=== PATIENT | female | born 1995 | race Caucasian/White ===

== ENCOUNTER 2016-10-29 16:08 | Emergency (ER) | payer MEDICAID ==
[2016-10-29 16:47] VITALS: BP 111/69
--- NOTE | 2016-10-29 17:24 | EDM.PDOC ---
ED HPI Skin/Rash - General Chief Complaint: Skin Complaint Stated Complaint: SCABIES Time Seen by Provider: 10/29/16 17:18 Source: Reports: Patient History Limitations: Reports: No limitations - History of Present Illness INITIAL COMMENTS - FREE TEXT/NARRATIVE: History of present illness: [21-year-old female presenting with concerns of scabies. Patient indicates that they have gotten progressively worse over last several days but. The itching is worse at night, they are spreading in the pattern consistent with research she has done. And now her boyfriend who had not been with for the last few weeks has started to have the itching and rash consistent with what she is experiencing.] Review of systems: As per history of present illness and below otherwise all systems reviewed and negative. Past medical history: As per history of present illness and as reviewed below otherwise noncontributory. Surgical history: As per history of present illness and as reviewed below otherwise noncontributory. Social history: No reported history of drug or alcohol abuse. Family history: As per history of present illness and as reviewed below otherwise noncontributory. Physical exam: HEENT: Atraumatic, normocephalic, pupils reactive, negative for conjunctival pallor or scleral icterus, mucous membranes moist, throat clear, neck supple, nontender, trachea midline. Lungs: Clear to auscultation, breath sounds equal bilaterally, chest nontender. Heart: S1S2, regular, negative for clicks, rubs, or JVD. Abdomen: Soft, nondistended, nontender. Negative for masses or hepatosplenomegaly. Negative for costovertebral tenderness. Pelvis: Stable nontender. Genitourinary: Deferred. Rectal: Deferred. Extremities: Atraumatic, negative for cords or calf pain. Neurovascular unremarkable. Neuro: Awake, alert, oriented. Cranial nerves II through XII unremarkable. Cerebellum unremarkable. Motor and sensory unremarkable throughout. Exam nonfocal. Skin: Nonspecific type rash consistent with scabies presenting over hands, axilla, chest, lower abdomen and patient indicates other areas. Discussed with patient the need to treat all linens, clothing, and bedding. As well as any bed partners needing to be treated as well, for total eradication. Patient instructed on necessity to follow scrupulous hygienic practices and trying to eradicate the scabies or she would have to have repeated treatments which would be progressive in severity. Diagnostics: [] Therapeutics: [] Impression: [Scabies] Plan: Permethrin [] Definitive disposition and diagnosis as appropriate pending reevaluation and review of above. - Related Data Allergies Allergy/AdvReac Type Severity Reaction Status Date / Time olive oil Allergy Hives Verified 10/29/16 16:29 Home Meds: Ambulatory Orders Medication Instructions Recorded Confirmed Permethrin 60 gm TP ASDIRECTED #2 tube 10/29/16 Past Medical History - Past Health History Medical/Surgical History: Denies Medical/Surgical History - Infectious Disease History Infectious Disease History: Reports: Chicken pox Social & Family History - Family History Family Medical History: Noncontributory - Tobacco Use Smoking Status *Q: Never Smoker - Caffeine Use Caffeine Use: Reports: None - Recreational Drug Use Recreational Drug Use: No ED ROS GENERAL - Review of Systems Review Of Systems: See Below (See history of present illness) ED EXAM, SKIN/RASH Exam: See Below (See history of present illness) Course - Vital Signs Last Recorded V/S: Last Vital Signs Temp 36.4 C 10/29/16 16:46 Pulse 70 10/29/16 16:46 Resp 20 10/29/16 16:46 BP 111/69 10/29/16 16:46 Pulse Ox 99 10/29/16 16:46 Departure - Departure Time of Disposition: 17:22 Disposition: Home, Self-Care 01 Condition: good Clinical Impression: Scabies infestation Prescriptions: Permethrin 60 gm TP ASDIRECTED #2 tube Forms: ED Department Discharge Additional Instructions: The following information is given to patients seen in the emergency department who are being discharged to home. This information is to outline your options for follow-up care. We provide all patients seen in our emergency department with a follow-up referral. The need for follow-up, as well as the timing and circumstances, are variable depending upon the specifics of your emergency department visit. If you don't have a primary care physician on staff, we will provide you with a referral. We always advise you to contact your personal physician following an emergency department visit to inform them of the circumstance of the visit and for follow-up with them and/or the need for any referrals to a consulting specialist. The emergency department will also refer you to a specialist when appropriate. This referral assures that you have the opportunity for follow-up care with a specialist. All of these measure are taken in an effort to provide you with optimal care, which includes your follow-up. Under all circumstances we always encourage you to contact your private physician who remains a resource for coordinating your care. When calling for follow-up care, please make the office aware that this follow-up is from your recent emergency room visit. If for any reason you are refused follow-up, please contact the [facility] Emergency Department at and asked to speak to the emergency department charge nurse. Use medication as directed Clean house and limits as discussed Followup with your PCP 1-2 days Return to ED as needed as discussed
== END 2016-10-29 17:45 | disposition home or self-care (01) ==
LOC: MW.ED 16:08
DX: B86 Scabies (principal)
CPT/HCPCS: 99282

== ENCOUNTER 2018-08-05 15:34 | Emergency (ER) | payer OTHER ==
[2018-08-05 16:14] VITALS: BP 121/90
--- NOTE | 2018-08-05 17:45 | CT ---
INDICATION: Head trauma, headache TECHNIQUE: CT head without contrast. COMPARISON: April 06, 2018 FINDINGS: CSF spaces: Within normal limits for age. Brain parenchyma: The fonseca-white differentiation is normal. No sign of mass, hemorrhage, or midline shift. Skull base and calvarium: The visualized paranasal sinuses and mastoid air cells demonstrate no acute or significant findings. The visualized orbits are grossly unremarkable. No skull fractures. IMPRESSION: Unremarkable noncontrast head CT. Please note that all CT scans at this facility use dose modulation, iterative reconstruction, and/or weight-based dosing when appropriate to reduce radiation dose to as low as reasonably achievable. Dictated by Elaine Levin MD @ Aug 05 2018 5:42PM Signed by Dr. Elaine Levin @ Aug 05 2018 5:44PM
--- NOTE | 2018-08-05 18:20 | EDM.PDOC ---
ED HPI GENERAL MEDICAL PROBLEM - General Chief Complaint: Head Injury Stated Complaint: HEAD INJURY Time Seen by Provider: 08/05/18 16:11 Source of Information: Reports: Patient History Limitations: Reports: No Limitations - History of Present Illness INITIAL COMMENTS - FREE TEXT/NARRATIVE: History of present illness: []Patient was at work and walked into a lamp attached to the wall by a door and shortly after she became "loopy" her coworkers having difficulty speaking confused and not able to stay on task. She had no loss of consciousness denies any visual changes nausea, vomiting or neck pain. Review of systems: As per history of present illness and below otherwise all systems reviewed and negative. Past medical history: As per history of present illness and as reviewed below otherwise noncontributory. Surgical history: As per history of present illness and as reviewed below otherwise noncontributory. Social history: No reported history of drug or alcohol abuse. Family history: As per history of present illness and as reviewed below otherwise noncontributory. Physical exam: General: Well developed, well nourished in NAD HEENT: Atraumatic, normocephalic, pupils reactive, negative for conjunctival pallor or scleral icterus, mucous membranes moist, throat clear, neck supple, nontender, trachea midline. Lungs: Clear to auscultation, breath sounds equal bilaterally, chest nontender. Heart: S1S2, regular, negative for clicks, rubs, or JVD. Abdomen: NABS, Soft, nondistended, nontender. Negative for masses or hepatosplenomegaly. Negative for costovertebral tenderness. Pelvis: Stable nontender. Genitourinary: Deferred. Rectal: Deferred. Extremities: Atraumatic, negative for cords or calf pain. Neurovascular unremarkable. Neuro: Awake, alert, oriented. Cranial nerves II through XII unremarkable. Cerebellum unremarkable. Motor and sensory unremarkable throughout. Exam nonfocal. Skin:warm and dry Diagnostics: CT had negative Therapeutics: None ED Course: Unremarkable Impression: Blunt head trauma Prescriptions: None Plan: Follow-up with primary care. To ER if any symptoms worsen or change. Definitive disposition and diagnosis as appropriate pending reevaluation and review of above. Left Head Pain Score (Numeric/FACES): 3 - Related Data Allergies Allergy/AdvReac Type Severity Reaction Status Date / Time olive oil Allergy Hives Verified 02/08/19 16:14 Home Meds: Home Meds . 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 Neurological History: Reports: None Psychiatric History: Reports: None Endocrine/Metabolic History: Reports: None Hematologic History: Reports: None Dermatologic History: Reports: None - Infectious Disease History Infectious Disease History: Reports: Chicken Pox - Past Surgical History HEENT Surgical History: Reports: Oral Surgery Other Musculoskeletal Surgeries/Procedures:: pelvic fracture Social & Family History - Family History Family Medical History: Noncontributory - Tobacco Use Smoking Status *Q: Never Smoker - Caffeine Use Caffeine Use: Reports: None - Recreational Drug Use Recreational Drug Use: No ED ROS GENERAL - Review of Systems Review Of Systems: ROS reveals no pertinent complaints other than HPI. ED EXAM, HEAD INJURY - Physical Exam Exam: See Below (See history of present illness) Course - Vital Signs Last Recorded V/S: Last Vital Signs Temp Pulse 70 08/05/18 16:12 Resp 18 08/05/18 16:12 BP 121/90 08/05/18 16:12 Pulse Ox 100 08/05/18 16:12 Departure - Departure Time of Disposition: 18:19 Disposition: Home, Self-Care 01 Condition: Good Clinical Impression: Blunt head trauma Qualifiers: Encounter type: initial encounter Qualified Code(s): S09.8XXA - Other specified injuries of head, initial encounter - Discharge Information *PRESCRIPTION DRUG MONITORING PROGRAM REVIEWED*: No *COPY OF PRESCRIPTION DRUG MONITORING REPORT IN PATIENT JAVIER: No Referrals: PCP,Unknown [Primary Care Provider] - Additional Instructions: The following information is given to patients seen in the emergency department who are being discharged to home. This information is to outline your options for follow-up care. We provide all patients seen in our emergency department with a follow-up referral. The need for follow-up, as well as the timing and circumstances, are variable depending upon the specifics of your emergency department visit. If you don't have a primary care physician on staff, we will provide you with a referral. We always advise you to contact your personal physician following an emergency department visit to inform them of the circumstance of the visit and for follow-up with them and/or the need for any referrals to a consulting specialist. The emergency department will also refer you to a specialist when appropriate. This referral assures that you have the opportunity for follow-up care with a specialist. All of these measure are taken in an effort to provide you with optimal care, which includes your follow-up. Under all circumstances we always encourage you to contact your private physician who remains a resource for coordinating your care. When calling for follow-up care, please make the office aware that this follow-up is from your recent emergency room visit. If for any reason you are refused follow-up, please contact the [facility] Emergency Department at and asked to speak to the emergency department charge nurse. [facility] Primary [facility] [address] [place] [id number]
== END 2018-08-05 18:38 | disposition home or self-care (01) ==
LOC: MW.ED 15:34
DX: S09.8XXA Other specified injuries of head, initial encounter (principal); Z91.09 Other allergy status, other than to drugs and biological substances; Y99.0 Civilian activity done for income or pay; W22.8XXA Striking against or struck by other objects, initial encounter
CPT/HCPCS: 70450; 70450-26; 99283; 99283-25

== ENCOUNTER 2018-08-09 18:07 | Emergency (ER) | payer OTHER ==
--- NOTE | 2018-08-09 18:34 | EDM.PDOC ---
ED HPI GENERAL MEDICAL PROBLEM - General Chief Complaint: Medication Administration Stated Complaint: MEDICATION REFILL Time Seen by Provider: 08/09/18 18:09 Source of Information: Reports: Patient History Limitations: Reports: No Limitations - History of Present Illness INITIAL COMMENTS - FREE TEXT/NARRATIVE: History of present illness: []Patient is on antidepressants and is requesting a refill of her meds. She moved to [place] 2 months ago and has not sought out a primary care to continue her regular meds. He is not suicidal homicidal but states she does not want to get to the point. She still has meds but will be running out soon. Review of systems: As per history of present illness and below otherwise all systems reviewed and negative. Past medical history: As per history of present illness and as reviewed below otherwise noncontributory. Surgical history: As per history of present illness and as reviewed below otherwise noncontributory. Social history: No reported history of drug or alcohol abuse. Family history: As per history of present illness and as reviewed below otherwise noncontributory. Physical exam: General: Well developed, well nourished in NAD HEENT: Atraumatic, normocephalic, pupils reactive, negative for conjunctival pallor or scleral icterus, mucous membranes moist, throat clear, neck supple, nontender, trachea midline. Lungs: Clear to auscultation, breath sounds equal bilaterally, chest nontender. Heart: S1S2, regular, negative for clicks, rubs, or JVD. Abdomen: NABS, Soft, nondistended, nontender. Negative for masses or hepatosplenomegaly. Negative for costovertebral tenderness. Pelvis: Stable nontender. Genitourinary: Deferred. Rectal: Deferred. Extremities: Atraumatic, negative for cords or calf pain. Neurovascular unremarkable. Neuro: Awake, alert, oriented. Cranial nerves II through XII unremarkable. Cerebellum unremarkable. Motor and sensory unremarkable throughout. Exam nonfocal. Skin:warm and dry Diagnostics: None Therapeutics: None ED Course: Unremarkable Impression: Medical screening exam Prescriptions: None Plan: Follow-up with primary care Definitive disposition and diagnosis as appropriate pending reevaluation and review of above. 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 Neurological History: Reports: None Psychiatric History: Reports: None Endocrine/Metabolic History: Reports: None Hematologic History: Reports: None Dermatologic History: Reports: None - Infectious Disease History Infectious Disease History: Reports: Chicken Pox - Past Surgical History HEENT Surgical History: Reports: Oral Surgery Other Musculoskeletal Surgeries/Procedures:: pelvic fracture Social & Family History - Family History Family Medical History: Noncontributory - Caffeine Use Caffeine Use: Reports: None ED ROS GENERAL - Review of Systems Review Of Systems: ROS reveals no pertinent complaints other than HPI. ED EXAM, GENERAL - Physical Exam Exam: See Below (History of present illness) Departure - Departure Time of Disposition: 18:33 Disposition: Home, Self-Care 01 Condition: Good Clinical Impression: Encounter for medical screening examination - Discharge Information *PRESCRIPTION DRUG MONITORING PROGRAM REVIEWED*: No *COPY OF PRESCRIPTION DRUG MONITORING REPORT IN PATIENT JAVIER: No Referrals: PCP,None [Primary Care Provider] - Additional Instructions: The following information is given to patients seen in the emergency department who are being discharged to home. This information is to outline your options for follow-up care. We provide all patients seen in our emergency department with a follow-up referral. The need for follow-up, as well as the timing and circumstances, are variable depending upon the specifics of your emergency department visit. If you don't have a primary care physician on staff, we will provide you with a referral. We always advise you to contact your personal physician following an emergency department visit to inform them of the circumstance of the visit and for follow-up with them and/or the need for any referrals to a consulting specialist. The emergency department will also refer you to a specialist when appropriate. This referral assures that you have the opportunity for follow-up care with a specialist. All of these measure are taken in an effort to provide you with optimal care, which includes your follow-up. Under all circumstances we always encourage you to contact your private physician who remains a resource for coordinating your care. When calling for follow-up care, please make the office aware that this follow-up is from your recent emergency room visit. If for any reason you are refused follow-up, please contact the [facility] Emergency Department at and asked to speak to the emergency department charge nurse. Follow-up with primary care [facility] [place] [phone]
[2018-08-09 18:47] VITALS: BP 115/74
== END 2018-08-09 18:51 | disposition home or self-care (01) ==
LOC: MW.ED 18:07
DX: Z76.0 Encounter for issue of repeat prescription (principal)
CPT/HCPCS: 99281

== ENCOUNTER 2018-08-11 15:25 | Emergency (ER) | payer SELFPAY ==
--- NOTE | 2018-08-11 15:39 | EDM.PDOC ---
ED HPI GENERAL MEDICAL PROBLEM - General Chief Complaint: Abdominal Pain Stated Complaint: BACK AND STOMACH PAIN Time Seen by Provider: 08/11/18 15:37 Source of Information: Reports: Patient History Limitations: Reports: No Limitations - History of Present Illness INITIAL COMMENTS - FREE TEXT/NARRATIVE: HISTORY AND PHYSICAL: History of present illness: Patient is a 23-year-old female who presents to the emergency room with complaints of right flank pain that radiates into the low abdomen. She states the symptoms have been ongoing for the past week but more so over the past 2 days. She was seen at [facility] for STD testing (due to the low abdominal pain and vaginal discharge), she was told all of her results were normal. Today's concern is more of the back and low abdominal pain. She denies any fever, chills, chest pain, shortness of breath or cough. Does have mild nausea without vomiting. Does report mild dysuria and few loose stools. She has been eating and drinking appropriately. States she does drink alcohol, but not in excess. Last menstrual period was 07/20/18. Review of systems: As per history of present illness and below otherwise all systems reviewed and negative. Past medical history: As per history of present illness and as reviewed below otherwise noncontributory. Surgical history: As per history of present illness and as reviewed below otherwise noncontributory. Social history: See social history for further information Family history: As per history of present illness and as reviewed below otherwise noncontributory. Physical exam: General: Well-developed and well-nourished 23-year-old female. Alert and oriented. Nontoxic appearing and in no acute distress. HEENT: Atraumatic, normocephalic, pupils equal and reactive bilaterally, negative for conjunctival pallor or scleral icterus, mucous membranes moist, TMs normal bilaterally, throat clear, neck supple, nontender, trachea midline. No drooling or trismus noted. No meningeal signs. No hot potato voice noted. Lungs: Clear to auscultation, breath sounds equal bilaterally, chest nontender. Heart: S1S2, regular rate and rhythm without overt murmur Abdomen: Soft, nondistended, mild epigastric abdominal pain. No rebound tenderness. Negative for masses or hepatosplenomegaly. Negative for costovertebral tenderness. Pelvis: Stable nontender. Genitourinary: Deferred. Rectal: Deferred. Skin: Intact, warm, dry. No lesions or rashes noted. Extremities: Atraumatic, negative for cords or calf pain. Neurovascular unremarkable. Neuro: Awake, alert, oriented. Cranial nerves II through XII unremarkable. Cerebellum unremarkable. Motor and sensory unremarkable throughout. Exam nonfocal. Notes: CBC and CMP urine are unremarkable. CT of the abdomen shows inflammatory fat stranding at the pancreatic head and second portion of the duodenum with trace free fluid in the right retroperitoneum this is suggestive of pancreatitis please correlate with the lipase. I will add this on to her lab work. Lipase is elevated. Another differential diagnosis that was suggested is peptic ulcer disease, H. pylori was added and she is positive. CT also shows fatty infiltration of the liver. Currently our facility is at maximum capacity and we are on diversion. Dr. Vincent was consulted on this case, she agrees that the patient would either need to be admitted or transferred. I did offer to transfer patient for further care and management, patient declines. We discussed doing IV fluids while here and re-evaluating after hydration. Patient is nontoxic appearing. She had previous nausea, but no active vomiting. Currently denies nausea. Abdominal pain is a 1/10. She has no elevated white count. Vital signs stable, afebrile. Patient was re-offered transfer, but does not want to be admitted or transferred. She is agreeable to returning tomorrow morning for reevaluation. Dr. Paulino was informed of this as she will be on between 7am and 4 PM and will reevaluate this patient as needed. Patient aware of possible risks. Discharged to home with script and education. Denies further questions or concerns at this time. Diagnostics: CBC, CMP, UA, urine , Lipase, HPylori Therapeutics: IV fluids, Morphine, Zofran, norco Omeprozole, Clarithromycin, amoxicillin PO Prescription: Omeprozole, Clarithromycin, amoxicillin Impression: H. Pylori Infection Pancreatitis Plan: 1. Please come back to the ER tomorrow for re-evaluation between 7am - 4pm. 2. Take the antibiotics as directed. [place] diet and advance as tolerated. Please increase your oral fluids. 3. Follow up with the general surgeon, Dr Vincent (or provider or your choosing) in the next 1-2 days. Return to the ED as needed as discussed. Definitive disposition and diagnosis as appropriate pending reevaluation and review of above. 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 Neurological History: Reports: None Psychiatric History: Reports: None Endocrine/Metabolic History: Reports: None Hematologic History: Reports: None Dermatologic History: Reports: None - Infectious Disease History Infectious Disease History: Reports: Chicken Pox - Past Surgical History HEENT Surgical History: Reports: Oral Surgery Other Musculoskeletal Surgeries/Procedures:: pelvic fracture Social & Family History - Family History Family Medical History: Noncontributory - Caffeine Use Caffeine Use: Reports: None ED ROS GENERAL - Review of Systems Review Of Systems: ROS reveals no pertinent complaints other than HPI. ED EXAM, GI/ABD - Physical Exam Exam: See Below (See dictation) Course - Vital Signs Last Recorded V/S: Last Vital Signs Temp 96.8 F 08/11/18 15:38 Pulse 88 08/11/18 15:38 Resp 16 08/11/18 15:38 BP 129/94 H 08/11/18 15:38 Pulse Ox 99 08/11/18 15:38 - Orders/Labs/Meds Orders: Active Orders 24 hr Category Date Time Status Sodium Chloride 0.9% [Normal Saline] 1,000 ml Med 08/11/18 21:05 Ordered IV STAT Labs: Laboratory Tests 08/11/18 08/11/18 08/11/18 Range/Units 16:00 16:00 16:00 WBC 7.38 (4.0-11.0) K/uL RBC 3.97 L (4.30-5.90) M/uL Hgb 13.2 (12.0-16.0) g/dL Hct 37.9 (36.0-46.0) % MCV 95.5 (80.0-98.0) fL MCH 33.2 H (27.0-32.0) pg MCHC 34.8 (31.0-37.0) g/dL RDW Std Deviation 44.2 (28.0-62.0) fl RDW Coeff of Bear 13 (11.0-15.0) % Plt Count 219 (150-400) K/uL MPV 10.00 (7.40-12.00) fL Neut % (Auto) 78.9 (48.0-80.0) % Lymph % (Auto) 12.9 L (16.0-40.0) % [place] % (Auto) 7.6 (0.0-15.0) % Eos % (Auto) 0.5 (0.0-7.0) % Baso % (Auto) 0.1 (0.0-1.5) % Neut # (Auto) 5.8 H (1.4-5.7) K/uL Lymph # (Auto) 1.0 (0.6-2.4) K/uL [place] # (Auto) 0.6 (0.0-0.8) K/uL Eos # (Auto) 0.0 (0.0-0.7) K/uL Baso # (Auto) 0.0 (0.0-0.1) K/uL Nucleated RBC % 0.0 /100WBC Nucleated RBCs # 0 K/uL Sodium 137 (136-145) mmol/L Potassium 3.6 (3.5-5.1) mmol/L Chloride 103 (98-107) mmol/L Carbon Dioxide 25.5 (21.0-32.0) mmol/L BUN 8 (7.0-18.0) mg/dL Creatinine 0.8 (0.6-1.0) mg/dL Est Cr Clr Drug Dosing 110.33 mL/min Estimated GFR (MDRD) > 60.0 ml/min Glucose 142 H (74-106) mg/dL Calcium 9.6 (8.5-10.1) mg/dL Total Bilirubin 0.6 (0.2-1.0) mg/dL AST 48 H (15-37) IU/L ALT 43 (14-63) IU/L Alkaline Phosphatase 74 (46-116) U/L Total Protein 7.1 (6.4-8.2) g/dL Albumin 3.9 (3.4-5.0) g/dL Globulin 3.2 (2.6-4.0) g/dL Albumin/Globulin Ratio 1.2 (0.9-1.6) Lipase 897 H (73-393) U/L Urine Color Urine Appearance Urine pH (5.0-8.0) Ur Specific [place] (1.001-1.035) Urine Protein (NEGATIVE) mg/dL Urine Glucose (UA) (NEGATIVE) mg/dL Urine Ketones (NEGATIVE) mg/dL Urine Occult Blood (NEGATIVE) Urine Nitrite (NEGATIVE) Urine Bilirubin (NEGATIVE) Urine Urobilinogen (<2.0) EU/dL Ur Leukocyte Esterase (NEGATIVE) Urine HCG, Qual (NEGATIVE) H. pylori IgG Antibody (NEG) 08/11/18 08/11/18 08/11/18 Range/Units 16:00 16:20 16:20 WBC (4.0-11.0) K/uL RBC (4.30-5.90) M/uL Hgb (12.0-16.0) g/dL Hct (36.0-46.0) % MCV (80.0-98.0) fL MCH (27.0-32.0) pg MCHC (31.0-37.0) g/dL RDW Std Deviation (28.0-62.0) fl RDW Coeff of Bear (11.0-15.0) % Plt Count (150-400) K/uL MPV (7.40-12.00) fL Neut % (Auto) (48.0-80.0) % Lymph % (Auto) (16.0-40.0) % [place] % (Auto) (0.0-15.0) % Eos % (Auto) (0.0-7.0) % Baso % (Auto) (0.0-1.5) % Neut # (Auto) (1.4-5.7) K/uL Lymph # (Auto) (0.6-2.4) K/uL [place] # (Auto) (0.0-0.8) K/uL Eos # (Auto) (0.0-0.7) K/uL Baso # (Auto) (0.0-0.1) K/uL Nucleated RBC % /100WBC Nucleated RBCs # K/uL Sodium (136-145) mmol/L Potassium (3.5-5.1) mmol/L Chloride (98-107) mmol/L Carbon Dioxide (21.0-32.0) mmol/L BUN (7.0-18.0) mg/dL Creatinine (0.6-1.0) mg/dL Est Cr Clr Drug Dosing mL/min Estimated GFR (MDRD) ml/min Glucose (74-106) mg/dL Calcium (8.5-10.1) mg/dL Total Bilirubin (0.2-1.0) mg/dL AST (15-37) IU/L ALT (14-63) IU/L Alkaline Phosphatase (46-116) U/L Total Protein (6.4-8.2) g/dL Albumin (3.4-5.0) g/dL Globulin (2.6-4.0) g/dL Albumin/Globulin Ratio (0.9-1.6) Lipase (73-393) U/L Urine Color YELLOW Urine Appearance SLT CLOUDY Urine pH 7.0 (5.0-8.0) Ur Specific [place] 1.020 (1.001-1.035) Urine Protein NEGATIVE (NEGATIVE) mg/dL Urine Glucose (UA) NEGATIVE (NEGATIVE) mg/dL Urine Ketones TRACE H (NEGATIVE) mg/dL Urine Occult Blood NEGATIVE (NEGATIVE) Urine Nitrite NEGATIVE (NEGATIVE) Urine Bilirubin NEGATIVE (NEGATIVE) Urine Urobilinogen 1.0 (<2.0) EU/dL Ur Leukocyte Esterase NEGATIVE (NEGATIVE) Urine HCG, Qual NEGATIVE (NEGATIVE) H. pylori IgG Antibody POSITIVE H (NEG) Meds: Medications Discontinued Medications Generic Name Dose Route Start Last Admin Trade Name Freq PRN Reason Stop Dose Admin Amoxicillin 1,000 mg 08/11/18 20:48 Amoxil PO 08/11/18 20:49 ONETIME ONE Clarithromycin 500 mg 08/11/18 20:48 Biaxin PO 08/11/18 20:49 NOW STA Al Hydroxide/Mg Hydroxide 15 0 ml 08/11/18 18:43 08/11/18 19:06 ml/ Lidocaine HCl 5 ml PO 08/11/18 18:44 1 each ONETIME ONE Administration Sodium Chloride 1,000 mls @ 999 mls/hr 08/11/18 19:16 08/11/18 20:10 Normal Saline IV 08/11/18 20:16 999 mls/hr STAT ONE Administration Morphine Sulfate 2 mg 08/11/18 19:16 08/11/18 20:14 Morphine IVPUSH 08/11/18 19:17 2 mg ONETIME ONE Administration Omeprazole 20 mg 08/11/18 20:48 Omeprazole PO 08/11/18 20:49 ONETIME ONE Ondansetron HCl 4 mg 08/11/18 19:16 08/11/18 20:11 Zofran IVPUSH 08/11/18 19:17 4 mg ONETIME ONE Administration Departure - Departure Time of Disposition: 21:11 Disposition: Home, Self-Care 01 Clinical Impression: Helicobacter pylori (H. pylori) infection Pancreatitis Qualifiers: Chronicity: acute Pancreatitis type: unspecified pancreatitis type Acute pancreatitis complication: no infection or necrosis Qualified Code(s): K85.90 - Acute pancreatitis without necrosis or infection, unspecified - Discharge Information Instructions: Acute Pancreatitis, [id number], Helicobacter Pylori Infection Referrals: PCP,None [Primary Care Provider] - Forms: ED Department Discharge Additional Instructions: The following information is given to patients seen in the emergency department who are being discharged to home. This information is to outline your options for follow-up care. We provide all patients seen in our emergency department with a follow-up referral. The need for follow-up, as well as the timing and circumstances, are variable depending upon the specifics of your emergency department visit. If you don't have a primary care physician on staff, we will provide you with a referral. We always advise you to contact your personal physician following an emergency department visit to inform them of the circumstance of the visit and for follow-up with them and/or the need for any referrals to a consulting specialist. The emergency department will also refer you to a specialist when appropriate. This referral assures that you have the opportunity for follow-up care with a specialist. All of these measure are taken in an effort to provide you with optimal care, which includes your follow-up. Under all circumstances we always encourage you to contact your private physician who remains a resource for coordinating your care. When calling for follow-up care, please make the office aware that this follow-up is from your recent emergency room visit. If for any reason you are refused follow-up, please contact the Emergency Department at and asked to speak to the emergency department charge nurse. Primary Care [address] [place] [address] [facility] [address] [place] [id number] Specialty Care - General Surgery Professional Building [address] [facility], [address] [place] [address] 1. Please come back to the ER tomorrow for re-evaluation between 7am - 4pm. Need to be re-evaluated and labs redrawn. 2. Take the antibiotics as directed. [place] diet and advance as tolerated. Please increase your oral fluids. 3. Follow up with the general surgeon, Dr Vincent (or provider of your choosing) in the next 1-2 days. Return to the ED as needed as discussed. - My Orders Last 24 Hours: My Active Orders 08/11/18 21:05 Sodium Chloride 0.9% [Normal Saline] 1,000 ml IV STAT - Assessment/Plan Last 24 Hours: My Active Orders 08/11/18 21:05 Sodium Chloride 0.9% [Normal Saline] 1,000 ml IV STAT
[2018-08-11 16:32] LABS: CHLORIDE,CL 103 mmol/L (98-107); SODIUM,NA 137 mmol/L (136-145)
--- NOTE | 2018-08-11 18:34 | CT ---
INDICATION: Right flank and lower back pain. TECHNIQUE: CT abdomen and pelvis without contrast. COMPARISON: Abdomen and pelvis CT 04/06/2018 FINDINGS: Lower chest: Unremarkable. Liver: Diffusely decreased density of the liver with additional focal fat adjacent to the portal vein. Gallbladder and bile ducts: No stones or inflammation. No biliary dilatation. Pancreas: There is fat stranding in the region of the pancreatic head and into the pancreatic groove surrounding the 2nd portion of the duodenum. Trace free fluid extends in the right retroperitoneum towards the right pericolic gutter. Spleen: Normal in size. No masses. Adrenal glands: Normal in size. No nodules. Kidneys: Normal in size. No masses, stones, or hydronephrosis. GI tract: The stomach is unremarkable. Inflammatory fat stranding surrounding the 2nd portion of the duodenum as described above. Remainder of the small bowel is decompressed. Terminal ileum and appendix unremarkable. Vasculature: Unremarkable. Lymph nodes: No lymphadenopathy. Abdominal wall/Omentum/Peritoneum: Unremarkable. No sign of mass or infiltration. No free air or significant free fluid. Pelvis: Unremarkable. No pelvic masses. Bones: Unremarkable for age. IMPRESSION: 1. Inflammatory fat stranding at the level of the pancreatic head and 2nd portion of the duodenum with trace free fluid in the right retroperitoneum. Appearance is suggestive of pancreatitis, correlation with lipase is suggested. Differential diagnosis would include a duodenal primary process such as an enteritis or peptic ulcer disease. 2. Fatty infiltration of the liver. Please note that all CT scans at this facility use dose modulation, iterative reconstruction, and/or weight-based dosing when appropriate to reduce radiation dose to as low as reasonably achievable. Dictated by Semaj Araujo MD @ Aug 11 2018 6:25PM Signed by Dr. Semaj Araujo @ Aug 11 2018 6:32PM
[2018-08-11] MEDS ORDERED: Alum Hydrox/Mag Hydrox/Simeth 15 ML, Lidocaine 2% 5 ML PO ONE ×2 (18:43)
[2018-08-11] MEDS ORDERED: Sodium Chloride 0.9% 1,000 ML IV ONE ×2 (19:16→21:05)
[2018-08-11] MEDS ORDERED: Ondansetron 4 MG/2 ML SDV IVPUSH ONE (19:16)
[2018-08-11] MEDS ORDERED: Morphine 2 MG/ML Syringe IVPUSH ONE (19:16)
[2018-08-11] MEDS ORDERED: Omeprazole 20 MG Cap.CR PO ONE (20:48)
[2018-08-11] MEDS ORDERED: Amoxicillin 500 MG Cap PO ONE (20:48)
[2018-08-11] MEDS ORDERED: Acetaminophen/HYDROcodone 325-5 MG Tab PO ONE (21:13)
[2018-08-11 22:09] VITALS: BP 112/77
== END 2018-08-11 22:12 | disposition home or self-care (01) ==
LOC: MW.ED 15:25
DX: K85.90 Acute pancreatitis without necrosis or infection, unspecified (principal); B96.81 Helicobacter pylori [H. pylori] as the cause of diseases classified elsewhere; Z79.899 Other long term (current) drug therapy
CPT/HCPCS: 36415; 74176; 80053; 81003; 81025; 83690; 85025; 86677; 96361; 96374; 96375; 99284; A9270; J2270; J2405; J7040

== ENCOUNTER 2018-08-12 07:33 | Emergency (ER) | payer SELFPAY ==
[2018-08-12] MEDS ORDERED: Sodium Chloride 0.9% 2.5 ML Syringe FLUSH PRN (07:40)
[2018-08-12] MEDS ORDERED: Sodium Chloride 0.9% 1,000 ML IV ONE ×2 (07:40→09:01)
[2018-08-12] MEDS ORDERED: Sodium Chloride 0.9% 10 ML Syringe FLUSH PRN (07:40)
--- NOTE | 2018-08-12 07:53 | EDM.PDOC ---
ED HPI GENERAL MEDICAL PROBLEM - General Chief Complaint: General Stated Complaint: ABDOMINAL PAIN Time Seen by Provider: 08/12/18 07:40 Source of Information: Reports: Patient History Limitations: Reports: No Limitations - History of Present Illness INITIAL COMMENTS - FREE TEXT/NARRATIVE: History of present illness: []Patient has been seen frequently in this ED for various reasons last night was here with diagnosis of pancreatitis. Patient was given the option for transfer due to lack of bed availability here but she chose to go home. Yesterday the case was discussed with general surgeon collection card clerk who was unable to see this patient in her office today due to a full schedule so patient was requested to return to the ED for a repeat labs and exam today. Review of systems: As per history of present illness and below otherwise all systems reviewed and negative. Past medical history: As per history of present illness and as reviewed below otherwise noncontributory. Surgical history: As per history of present illness and as reviewed below otherwise noncontributory. Social history: No reported history of drug or alcohol abuse. Family history: As per history of present illness and as reviewed below otherwise noncontributory. Physical exam: General: Well developed, well nourished in NAD HEENT: Atraumatic, normocephalic, pupils reactive, negative for conjunctival pallor or scleral icterus, mucous membranes moist, throat clear, neck supple, nontender, trachea midline. Lungs: Clear to auscultation, breath sounds equal bilaterally, chest nontender. Heart: S1S2, regular, negative for clicks, rubs, or JVD. Abdomen: NABS, Soft, nondistended, nontender. Negative for masses or hepatosplenomegaly. Negative for costovertebral tenderness. Pelvis: Stable nontender. Genitourinary: Deferred. Rectal: Deferred. Extremities: Atraumatic, negative for cords or calf pain. Neurovascular unremarkable. Neuro: Awake, alert, oriented. Cranial nerves II through XII unremarkable. Cerebellum unremarkable. Motor and sensory unremarkable throughout. Exam nonfocal. Skin:warm and dry Diagnostics: CBC, chemistry, lipase all improved from yesterday Therapeutics: Potassium slightly low given 40 by mouth of potassium, she was hydrated with 2 L of normal saline and given Zofran ED Course: Unremarkable Impression: Pancreatitis Prescriptions: Zofran Plan: Follow up with general surgery. Take meds as directed, follow up with your primary care physician, return to ER if symptoms worsen or change. Definitive disposition and diagnosis as appropriate pending reevaluation and review of above. Back Pain Score (Numeric/FACES): 10 - Related Data Allergies Allergy/AdvReac Type Severity Reaction Status Date / Time olive oil Allergy Hives Verified 08/12/18 07:53 Home Meds: Home Meds Gabapentin [Neurontin] 100 mg PO TID 08/09/18 [History] Mirtazapine 15 mg PO ONETIME 08/09/18 [History] Ondansetron HCl [Zofran] 4 mg PO Q4HR #12 tablet 08/12/18 [Rx] Past Medical History - Past Health History Medical/Surgical History: Denies Medical/Surgical History HEENT History: Reports: None Cardiovascular History: Reports: None Respiratory History: Reports: None Gastrointestinal History: Reports: None Genitourinary History: Reports: None 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 Neurological History: Reports: None Psychiatric History: Reports: None Endocrine/Metabolic History: Reports: None Hematologic History: Reports: None Dermatologic History: Reports: None - Infectious Disease History Infectious Disease History: Reports: Chicken Pox - Past Surgical History HEENT Surgical History: Reports: Oral Surgery Other Musculoskeletal Surgeries/Procedures:: pelvic fracture Social & Family History - Family History Family Medical History: Noncontributory - Caffeine Use Caffeine Use: Reports: None ED ROS GENERAL - Review of Systems Review Of Systems: ROS reveals no pertinent complaints other than HPI. ED EXAM, GENERAL - Physical Exam Exam: See Below (See history of present illness) Course - Vital Signs Last Recorded V/S: Last Vital Signs Temp 98.6 F 08/12/18 07:53 Pulse 87 08/12/18 07:53 Resp 15 08/12/18 07:53 BP 118/90 08/12/18 07:53 Pulse Ox 98 08/12/18 07:53 - Orders/Labs/Meds Orders: Active Orders 24 hr Category Date Time Status Sodium Chloride 0.9% [Normal Saline] 1,000 ml Med 08/12/18 09:01 Active IV .Bolus Sodium Chloride 0.9% [Saline Flush] Med 08/12/18 07:40 Active 10 ml FLUSH ASDIRECTED PRN Sodium Chloride 0.9% [Saline Flush] Med 08/12/18 07:40 Active 2.5 ml FLUSH ASDIRECTED PRN Saline Lock Insert [OM.PC] Stat Oth 08/12/18 07:40 Ordered Medication Orders Sodium Chloride (Normal Saline) 1,000 mls @ 999 mls/hr IV .Bolus ONE Stop: 08/12/18 10:01 Last Admin: 08/12/18 09:07 Dose: 999 mls/hr Sodium Chloride (Saline Flush) 10 ml FLUSH ASDIRECTED PRN PRN Reason: Keep Vein Open Last Admin: 08/12/18 08:08 Dose: 10 ml Sodium Chloride (Saline Flush) 2.5 ml FLUSH ASDIRECTED PRN PRN Reason: Keep Vein Open Last Admin: 08/12/18 08:08 Dose: 2.5 ml Labs: Laboratory Tests 08/12/18 08/12/18 Range/Units 08:05 08:05 WBC 6.12 (4.0-11.0) K/uL RBC 3.85 L (4.30-5.90) M/uL Hgb 12.7 (12.0-16.0) g/dL Hct 37.1 (36.0-46.0) % MCV 96.4 (80.0-98.0) fL MCH 33.0 H (27.0-32.0) pg MCHC 34.2 (31.0-37.0) g/dL RDW Std Deviation 44.4 (28.0-62.0) fl RDW Coeff of Bear 13 (11.0-15.0) % Plt Count 190 (150-400) K/uL MPV 9.80 (7.40-12.00) fL Neut % (Auto) 64.8 (48.0-80.0) % Lymph % (Auto) 24.7 (16.0-40.0) % [place] % (Auto) 8.8 (0.0-15.0) % Eos % (Auto) 1.5 (0.0-7.0) % Baso % (Auto) 0.2 (0.0-1.5) % Neut # (Auto) 4.0 (1.4-5.7) K/uL Lymph # (Auto) 1.5 (0.6-2.4) K/uL [place] # (Auto) 0.5 (0.0-0.8) K/uL Eos # (Auto) 0.1 (0.0-0.7) K/uL Baso # (Auto) 0.0 (0.0-0.1) K/uL Nucleated RBC % 0.0 /100WBC Nucleated RBCs # 0 K/uL Sodium 137 (136-145) mmol/L Potassium 3.1 L (3.5-5.1) mmol/L Chloride 103 (98-107) mmol/L Carbon Dioxide 25.4 (21.0-32.0) mmol/L BUN 7 (7.0-18.0) mg/dL Creatinine 0.8 (0.6-1.0) mg/dL Est Cr Clr Drug Dosing 110.33 mL/min Estimated GFR (MDRD) > 60.0 ml/min Glucose 95 (74-106) mg/dL Calcium 8.7 (8.5-10.1) mg/dL Total Bilirubin 0.8 (0.2-1.0) mg/dL AST 33 (15-37) IU/L ALT 45 (14-63) IU/L Alkaline Phosphatase 73 (46-116) U/L Total Protein 6.6 (6.4-8.2) g/dL Albumin 3.5 (3.4-5.0) g/dL Globulin 3.1 (2.6-4.0) g/dL Albumin/Globulin Ratio 1.1 (0.9-1.6) Lipase 473 H (73-393) U/L Meds: Medications Generic Name Dose Route Start Last Admin Trade Name Freq PRN Reason Stop Dose Admin Sodium Chloride 1,000 mls @ 999 mls/hr 08/12/18 09:01 08/12/18 09:07 Normal Saline IV 08/12/18 10:01 999 mls/hr .Bolus ONE Administration Sodium Chloride 10 ml 08/12/18 07:40 08/12/18 08:08 Saline Flush FLUSH 10 ml ASDIRECTED PRN Administration Keep Vein Open Sodium Chloride 2.5 ml 08/12/18 07:40 08/12/18 08:08 Saline Flush FLUSH 2.5 ml ASDIRECTED PRN Administration Keep Vein Open Discontinued Medications Generic Name Dose Route Start Last Admin Trade Name Freq PRN Reason Stop Dose Admin Sodium Chloride 1,000 mls @ 999 mls/hr 08/12/18 07:40 08/12/18 08:08 Normal Saline IV 08/12/18 08:40 999 mls/hr .Bolus ONE Administration Ondansetron HCl 4 mg 08/12/18 09:00 08/12/18 09:07 Zofran IVPUSH 08/12/18 09:01 4 mg ONETIME ONE Administration Potassium Chloride 40 meq 08/12/18 09:00 08/12/18 09:07 Klor-Con M20 PO 08/12/18 09:01 40 meq ONETIME ONE Administration Departure - Departure Time of Disposition: 09:56 Disposition: Home, Self-Care 01 Condition: Good Clinical Impression: Pancreatitis Qualifiers: Chronicity: acute Pancreatitis type: unspecified pancreatitis type Acute pancreatitis complication: no infection or necrosis Qualified Code(s): K85.90 - Acute pancreatitis without necrosis or infection, unspecified - Discharge Information *PRESCRIPTION DRUG MONITORING PROGRAM REVIEWED*: No *COPY OF PRESCRIPTION DRUG MONITORING REPORT IN PATIENT AJVIER: No Prescriptions: Ondansetron HCl [Zofran] 4 mg PO Q4HR #12 tablet Referrals: PCP,Unknown [Primary Care Provider] - Forms: ED Department Discharge Additional Instructions: The following information is given to patients seen in the emergency department who are being discharged to home. This information is to outline your options for follow-up care. We provide all patients seen in our emergency department with a follow-up referral. The need for follow-up, as well as the timing and circumstances, are variable depending upon the specifics of your emergency department visit. If you don't have a primary care physician on staff, we will provide you with a referral. We always advise you to contact your personal physician following an emergency department visit to inform them of the circumstance of the visit and for follow-up with them and/or the need for any referrals to a consulting specialist. The emergency department will also refer you to a specialist when appropriate. This referral assures that you have the opportunity for follow-up care with a specialist. All of these measure are taken in an effort to provide you with optimal care, which includes your follow-up. Under all circumstances we always encourage you to contact your private physician who remains a resource for coordinating your care. When calling for follow-up care, please make the office aware that this follow-up is from your recent emergency room visit. If for any reason you are refused follow-up, please contact the [facility] Emergency Department at and asked to speak to the emergency department charge nurse. Take meds as directed, follow up with your primary care physician, return to ER if symptoms worsen or change. [facility] Specialty Care - General Surgery Professional Building [address] [place] [address], [address] [place] [address] - My Orders Last 24 Hours: My Active Orders 08/12/18 07:40 Sodium Chloride 0.9% [Saline Flush] 10 ml FLUSH ASDIRECTED PRN Sodium Chloride 0.9% [Saline Flush] 2.5 ml FLUSH ASDIRECTED PRN Saline Lock Insert [OM.PC] Stat 08/12/18 09:01 Sodium Chloride 0.9% [Normal Saline] 1,000 ml IV .Bolus - Assessment/Plan Last 24 Hours: My Active Orders 08/12/18 07:40 Sodium Chloride 0.9% [Saline Flush] 10 ml FLUSH ASDIRECTED PRN Sodium Chloride 0.9% [Saline Flush] 2.5 ml FLUSH ASDIRECTED PRN Saline Lock Insert [OM.PC] Stat 08/12/18 09:01 Sodium Chloride 0.9% [Normal Saline] 1,000 ml IV .Bolus
[2018-08-12 08:41] LABS: CHLORIDE,CL 103 mmol/L (98-107); SODIUM,NA 137 mmol/L (136-145)
[2018-08-12] MEDS ORDERED: Ondansetron 4 MG/2 ML SDV IVPUSH ONE (09:00)
[2018-08-12] MEDS ORDERED: Potassium Chloride 20 MEQ Tab.ER PO ONE (09:00)
[2018-08-12 10:17] VITALS: BP 113/88
== END 2018-08-12 10:10 | disposition home or self-care (01) ==
LOC: MW.ED 07:33
DX: K85.90 Acute pancreatitis without necrosis or infection, unspecified (principal); Z91.018 Allergy to other foods
CPT/HCPCS: 36415; 80053; 83690; 85025; 96361; 96374; 99283; A9270; J2405; J7040

== ENCOUNTER 2018-08-17 22:40 | Emergency (ER) | payer SELFPAY ==
[2018-08-17] MEDS ORDERED: Sodium Chloride 0.9% 1,000 ML IV ONE (23:12)
[2018-08-17] MEDS ORDERED: Ketorolac 30 MG/ML SDV IVPUSH ONE (23:12)
[2018-08-17 23:43] LABS: CHLORIDE,CL 105 mmol/L (98-107); SODIUM,NA 141 mmol/L (136-145)
--- NOTE | 2018-08-17 23:48 | EDM.PDOC ---
ED HPI GENERAL MEDICAL PROBLEM - General Chief Complaint: Abdominal Pain Stated Complaint: UNKNOWN Time Seen by Provider: 08/17/18 23:04 - History of Present Illness INITIAL COMMENTS - FREE TEXT/NARRATIVE: HISTORY AND PHYSICAL: History of present illness: Patient is a 23-year-old white female presents with pelvic and lower abdominal pain status post intercourse this was relatively unremarkable intercourse she denies any particular trauma or other a parent behavior related to this this was protected sex patient had recent hCG that was negative as well as recent pelvic exam including STD screening was negative partner is with patient and denies any symptoms. Review of systems: As per history of present illness and below otherwise all systems reviewed and negative. Past medical history: As per history of present illness and as reviewed below otherwise noncontributory. Surgical history: As per history of present illness and as reviewed below otherwise noncontributory. Social history: No reported history of drug or alcohol abuse. Family history: As per history of present illness and as reviewed below otherwise noncontributory. Physical exam: HEENT: Atraumatic, normocephalic, pupils reactive, negative for conjunctival pallor or scleral icterus, mucous membranes moist, throat clear, neck supple, nontender, trachea midline. Lungs: Clear to auscultation, breath sounds equal bilaterally, chest nontender. Heart: S1S2, regular, negative for clicks, rubs, or JVD. Abdomen: Soft, nondistended, tenderness across lower abdomen this is not well localized is no rebound no guarding. Negative for masses or hepatosplenomegaly. Negative for costovertebral tenderness. Pelvis: Patient deferred Genitourinary: Deferred. Rectal: Deferred. Extremities: Atraumatic, negative for cords or calf pain. Neurovascular unremarkable. Neuro: Awake, alert, oriented. Cranial nerves II through XII unremarkable. Cerebellum unremarkable. Motor and sensory unremarkable throughout. Exam nonfocal. Diagnostics: CBC CMP hCG CT abdomen and pelvis with IV contrast Therapeutics: Saline 1 L bolus Toradol 30 mg IV Impression: #1 postcoital abdominal pain Definitive disposition and diagnosis as appropriate pending reevaluation and review of above. 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 Neurological History: Reports: None Psychiatric History: Reports: None Endocrine/Metabolic History: Reports: None Hematologic History: Reports: None Immunologic History: Reports: None Oncologic (Cancer) History: Reports: None Dermatologic History: Reports: None - Infectious Disease History Infectious Disease History: Reports: None - Past Surgical History Head Surgeries/Procedures: Reports: None HEENT Surgical History: Reports: Oral Surgery Other Musculoskeletal Surgeries/Procedures:: pelvic fracture Social & Family History - Family History Family Medical History: Noncontributory - Tobacco Use Smoking Status *Q: Current Every Day Smoker Years of Tobacco use: 1 Packs/Tins Daily: 0.5 - Caffeine Use Caffeine Use: Reports: Coffee - Recreational Drug Use Recreational Drug Use: No ED ROS GENERAL - Review of Systems Review Of Systems: ROS reveals no pertinent complaints other than HPI. ED EXAM, GENERAL - Physical Exam Exam: See Below (See dictation) Course - Vital Signs Last Recorded V/S: Last Vital Signs Temp 36.8 C 08/17/18 22:59 Pulse 70 08/18/18 02:00 Resp 18 08/18/18 02:00 BP 114/68 08/18/18 02:00 Pulse Ox 98 08/18/18 02:00 - Orders/Labs/Meds Labs: Laboratory Tests 08/17/18 08/17/18 08/17/18 Range/Units 23:10 23:15 23:15 WBC 5.56 (4.0-11.0) K/uL RBC 3.80 L (4.30-5.90) M/uL Hgb 12.7 (12.0-16.0) g/dL Hct 36.6 (36.0-46.0) % MCV 96.3 (80.0-98.0) fL MCH 33.4 H (27.0-32.0) pg MCHC 34.7 (31.0-37.0) g/dL RDW Std Deviation 43.9 (28.0-62.0) fl RDW Coeff of Bear 13 (11.0-15.0) % Plt Count 239 (150-400) K/uL MPV 10.20 (7.40-12.00) fL Neut % (Auto) 52.2 (48.0-80.0) % Lymph % (Auto) 39.0 (16.0-40.0) % [place] % (Auto) 7.4 (0.0-15.0) % Eos % (Auto) 0.9 (0.0-7.0) % Baso % (Auto) 0.5 (0.0-1.5) % Neut # (Auto) 2.9 (1.4-5.7) K/uL Lymph # (Auto) 2.2 (0.6-2.4) K/uL [place] # (Auto) 0.4 (0.0-0.8) K/uL Eos # (Auto) 0.1 (0.0-0.7) K/uL Baso # (Auto) 0.0 (0.0-0.1) K/uL Nucleated RBC % 0.0 /100WBC Nucleated RBCs # 0 K/uL Sodium 141 (136-145) mmol/L Potassium 3.7 (3.5-5.1) mmol/L Chloride 105 (98-107) mmol/L Carbon Dioxide 24.8 (21.0-32.0) mmol/L BUN 8 (7.0-18.0) mg/dL Creatinine 0.7 (0.6-1.0) mg/dL Est Cr Clr Drug Dosing 126.09 mL/min Estimated GFR (MDRD) > 60.0 ml/min Glucose 96 (74-106) mg/dL Calcium 8.7 (8.5-10.1) mg/dL Total Bilirubin 0.2 (0.2-1.0) mg/dL AST 47 H (15-37) IU/L ALT 74 H (14-63) IU/L Alkaline Phosphatase 65 (46-116) U/L Total Protein 7.3 (6.4-8.2) g/dL Albumin 3.9 (3.4-5.0) g/dL Globulin 3.4 (2.6-4.0) g/dL Albumin/Globulin Ratio 1.1 (0.9-1.6) HCG, Qual (NEG) Urine Color YELLOW Urine Appearance CLEAR Urine pH 6.0 (5.0-8.0) Ur Specific [place] 1.020 (1.001-1.035) Urine Protein NEGATIVE (NEGATIVE) mg/dL Urine Glucose (UA) NEGATIVE (NEGATIVE) mg/dL Urine Ketones TRACE H (NEGATIVE) mg/dL Urine Occult Blood NEGATIVE (NEGATIVE) Urine Nitrite NEGATIVE (NEGATIVE) Urine Bilirubin NEGATIVE (NEGATIVE) Urine Urobilinogen 0.2 (<2.0) EU/dL Ur Leukocyte Esterase NEGATIVE (NEGATIVE) Urine RBC 0-2 (0-2/HPF) Urine WBC 0-1 (0-5/HPF) Ur Epithelial Cells FEW (NONE-FEW) Urine Bacteria RARE (NEGATIVE) 08/17/18 Range/Units 23:15 WBC (4.0-11.0) K/uL RBC (4.30-5.90) M/uL Hgb (12.0-16.0) g/dL Hct (36.0-46.0) % MCV (80.0-98.0) fL MCH (27.0-32.0) pg MCHC (31.0-37.0) g/dL RDW Std Deviation (28.0-62.0) fl RDW Coeff of [place] (11.0-15.0) % Plt Count (150-400) K/uL MPV (7.40-12.00) fL Neut % (Auto) (48.0-80.0) % Lymph % (Auto) (16.0-40.0) % [place] % (Auto) (0.0-15.0) % Eos % (Auto) (0.0-7.0) % Baso % (Auto) (0.0-1.5) % Neut # (Auto) (1.4-5.7) K/uL Lymph # (Auto) (0.6-2.4) K/uL [place] # (Auto) (0.0-0.8) K/uL Eos # (Auto) (0.0-0.7) K/uL Baso # (Auto) (0.0-0.1) K/uL Nucleated RBC % /100WBC Nucleated RBCs # K/uL Sodium (136-145) mmol/L Potassium (3.5-5.1) mmol/L Chloride (98-107) mmol/L Carbon Dioxide (21.0-32.0) mmol/L BUN (7.0-18.0) mg/dL Creatinine (0.6-1.0) mg/dL Est Cr Clr Drug Dosing mL/min Estimated GFR (MDRD) ml/min Glucose (74-106) mg/dL Calcium (8.5-10.1) mg/dL Total Bilirubin (0.2-1.0) mg/dL AST (15-37) IU/L ALT (14-63) IU/L Alkaline Phosphatase (46-116) U/L Total Protein (6.4-8.2) g/dL Albumin (3.4-5.0) g/dL Globulin (2.6-4.0) g/dL Albumin/Globulin Ratio (0.9-1.6) HCG, Qual NEGATIVE (NEG) Urine Color Urine Appearance Urine pH (5.0-8.0) Ur Specific [place] (1.001-1.035) Urine Protein (NEGATIVE) mg/dL Urine Glucose (UA) (NEGATIVE) mg/dL Urine Ketones (NEGATIVE) mg/dL Urine Occult Blood (NEGATIVE) Urine Nitrite (NEGATIVE) Urine Bilirubin (NEGATIVE) Urine Urobilinogen (<2.0) EU/dL Ur Leukocyte Esterase (NEGATIVE) Urine RBC (0-2/HPF) Urine WBC (0-5/HPF) Ur Epithelial Cells (NONE-FEW) Urine Bacteria (NEGATIVE) Meds: Medications Discontinued Medications Generic Name Dose Route Start Last Admin Trade Name Freq PRN Reason Stop Dose Admin Hydromorphone HCl 1 mg 08/18/18 02:38 08/18/18 02:47 Dilaudid IVPUSH 08/18/18 02:39 1 mg ONETIME ONE Administration Sodium Chloride 1,000 mls @ 999 mls/min 08/17/18 23:12 08/17/18 23:21 Normal Saline IV 08/17/18 23:13 999 mls/min .Bolus ONE Administration Iopamidol 85 ml 08/18/18 00:17 08/18/18 00:18 Isovue-370 (76%) IVPUSH 08/18/18 00:18 85 ml ONETIME ONE Administration Ketorolac Tromethamine 30 mg 08/17/18 23:12 08/17/18 23:21 Toradol IVPUSH 08/17/18 23:13 30 mg ONETIME ONE Administration Departure - Departure Time of Disposition: 02:30 Disposition: Home, Self-Care 01 Condition: Good Clinical Impression: Ovarian cyst - Discharge Information Instructions: Ovarian Cyst, [id number] Referrals: PCP,None [Primary Care Provider] - Forms: ED Department Discharge Additional Instructions: The following information is given to patients seen in the emergency department who are being discharged to home. This information is to outline your options for follow-up care. We provide all patients seen in our emergency department with a follow-up referral. The need for follow-up, as well as the timing and circumstances, are variable depending upon the specifics of your emergency department visit. If you don't have a primary care physician on staff, we will provide you with a referral. We always advise you to contact your personal physician following an emergency department visit to inform them of the circumstance of the visit and for follow-up with them and/or the need for any referrals to a consulting specialist. The emergency department will also refer you to a specialist when appropriate. This referral assures that you have the opportunity for followup care with a specialist. All of these measure are taken in an effort to provide you with optimal care, which includes your followup. Under all circumstances we always encourage you to contact your private physician who remains a resource for coordinating your care. When calling for followup care, please make the office aware that this follow-up is from your recent emergency room visit. If for any reason you are refused follow-up, please contact the [facility] emergency department at and asked to speak to the emergency department charge nurse. Ultram as prescribed follow-up will be [place] as discussed return as needed as discussed
[2018-08-18] MEDS ORDERED: Iopamidol 755 Mg/ML 100 ML Bottle IVPUSH ONE (00:17)
--- NOTE | 2018-08-18 00:40 | CT ---
INDICATION: Pain after intercourse TECHNIQUE: CT abdomen and pelvis acquired with 85 cc Isovue 370 intravenous contrast. COMPARISON: Abdomen and pelvis CT 08/11/2018 FINDINGS: Lower chest: Unremarkable. Liver: Mildly decreased density consistent with fatty infiltration of the liver. Gallbladder and bile ducts: Unremarkable. No stones or inflammation. No biliary dilatation. Pancreas: Normal in contour. Interval improvement in previously noted peripancreatic inflammation. Spleen: Unremarkable. Normal in size. No masses. Adrenal glands: Unremarkable. No nodules. Kidneys: Unremarkable. No masses, stones, or hydronephrosis. GI tract: The stomach is unremarkable. There are no dilated loops of large or small intestine. Terminal ileum is unremarkable. Vasculature: Unremarkable. Lymph nodes: No lymphadenopathy. Pelvis: The bladder is unremarkable. Uterus is anteverted. The right ovary appears somewhat enlarged with a small amount of high-density fluid within the pelvic cul-de-sac as well as within the bilateral lower quadrants. Bones: Unremarkable for age. IMPRESSION: 1. Right adnexal enlargement with small amount of high-density fluid in the pelvic cul-de-sac and bilateral lower quadrants. Appearance is suggestive of a small amount of hemoperitoneum and considering the right adnexal enlargement, etiology is suspicious for a ruptured hemorrhagic cyst. 2. Fatty infiltration of the liver. Please note that all CT scans at this facility use dose modulation, iterative reconstruction, and/or weight-based dosing when appropriate to reduce radiation dose to as low as reasonably achievable. Dictated by Semaj Araujo MD @ Aug 18 2018 12:32AM Signed by Dr. Semaj Araujo @ Aug 18 2018 12:38AM
[2018-08-18 02:23] VITALS: BP 114/68
--- NOTE | 2018-08-18 02:33 | US ---
INDICATION: Abdominal pain TECHNIQUE: Ultrasound pelvis transabdominal and transvaginal for better assessment or to better visualize the endometrium. Real-time sonographic images with spectral and color Doppler imaging of the ovaries were obtained. COMPARISON: CT abdomen pelvis August 17, 2018 and August 11 2018 FINDINGS: Uterus: 7.5 x 3.7 x 4.3 cm. Normal echotexture of the myometrium. No masses. Endometrium: Transvaginal imaging was performed to better evaluate the endometrium. 10 mm in thickness. No sign of endometrial mass or fluid. Right ovary: 7.6 x 4.4 x 7.7 cm. The enlarged right ovary is heterogeneous and contains at least 1 round hypodensity measuring 1.9 cm in diameter. Normal arterial and venous blood flow. Left ovary: 3.3 x 2.7 x 2.0 cm. No ovarian or adnexal masses. Normal arterial and venous blood flow. Cul-de-sac: No significant free fluid. IMPRESSION: Abnormally enlarged and heterogeneous right ovary. Round hypodensity in the right ovary may represent a corpus luteum cyst. No evidence for torsion. Recommend a follow-up ultrasound in 4 weeks. Normal left ovary and uterus. Dictated by Elaine Levin MD @ Aug 18 2018 2:26AM Signed by Dr. Elaine Levin @ Aug 18 2018 2:32AM
[2018-08-18] MEDS ORDERED: HYDROmorphone 1 MG/ML Syringe IVPUSH ONE (02:38)
== END 2018-08-18 03:00 | disposition home or self-care (01) ==
LOC: MW.ED 22:40
DX: N83.201 Unspecified ovarian cyst, right side (principal); N94.10 Unspecified dyspareunia; F17.210 Nicotine dependence, cigarettes, uncomplicated; Z91.018 Allergy to other foods
CPT/HCPCS: 36415; 74177; 76856; 80053; 81001; 84703; 85025; 96361; 96374; 96375; 99284; J1170; J1885; J7040; Q9967; 99283